=== PATIENT | male | born 1930 | race Caucasian/White ===

== ENCOUNTER 2017-02-21 15:19 | Observation (INO) | payer OTHER ==
[~2017-02-21] VITALS: Ht 177.8 cm; Wt 68.0 kg
[~2017-02-21 15:19] MED LIST: ADVIL200 M2 PO; AMLODIPINE BESY10 M1 PO; BICALUTAMIDE50 M1 PO; DEXAMETHAS0.5 MG/52; DEXAMETHASONE1 M1 PO; DEXAMETHASONE4 M1 PO; DILAUDID2 M1 PO; ELIQUIS5 M1 PO; ELIQUIS5 M2 PO; FLOMAX0.4 M1 PO; IBUPROFEN600 M1 PO; LASIX20 M1 PO; MEGESTROL ACETA40 MG PO; TRAMADOL HCL50 M1 PO; XANAX0.5 M1 PO; ZANTAC150 M1 PO
[2017-02-21 16:09] LABS: ABSOLUTE BASOPHIL COUNT 0 /CUMM (0.0-0.2); ABSOLUTE EOSINOPHIL COUNT 0.1 /CUMM (0.0-0.7); ABSOLUTE GRANULOCYTE CT 14.5 /CUMM (1.4-6.5); ABSOLUTE LYMPH COUNT 1.2 /CUMM (1.2-3.4); ABSOLUTE MONOCYTE COUNT 0.9 /CUMM (0.10-0.60); BASOPHIL % 0.2 % (0.0-2.0); EOSINOPHIL % 0.3 % (0-5); HEMATOCRIT 40.7 % (42-52); MEAN CORPUSCULAR HGB 30.5 PG (27.0-31.0); MEAN CORPUSCULAR HGB CONC 34.2 G/DL (33.0-37.0); MEAN CORPUSCULAR VOLUME 89.1 FL (80.0-94.0); MEAN PLATELET VOLUME 7.9 FL (7.4-10.4); PLATELET COUNT 259 /CUMM (130-400); RED BLOOD CELL CT 4.57 /CUMM (4.70-6.10)
--- NOTE | 2017-02-21 16:10 | ED GENERAL ADULT ---
See Addendum History of Present Illness General Chief Complaint: General Adult Stated Complaint: SENT BY DR. AVENDANO FOR WEAKNESS,DIFF BREATHING Source: patient, family, old records Exam Limitations: no limitations Vital Signs & Intake/Output Vital Signs & Intake/Output Vital Signs Date Time Temp Pulse Resp B/P B/P Pulse O2 O2 Flow FiO2 Mean Ox Delivery Rate 02/23 0630 98.3 86 20 132/80 96 02/22 2259 98.4 96 20 112/60 95 Room Air 02/22 2200 98.8 93 18 116/62 95 Room Air 02/22 2053 93 116/62 02/22 1506 98.6 95 20 110/58 97 Room Air 02/22 1024 98 108/52 ED Intake and Output 02/23 0000 02/22 1200 Intake Total 1778 660 Output Total 1000 Balance 778 660 Intake, IV 1298 660 Intake, Oral 480 Output, Urine 1000 Patient 150 lb Weight Allergies Coded Allergies: NO KNOWN ALLERGIES (07/16/10) Triage Note: PT SENT TO ED BY DR. LEYVA FOR WORSENING PROSTATE CANCER. CANCER IS METASTATIC PER SON, IT'S NOW IN THE BONES. RECENTLY DISCHARGED FROM THIS HOSPITAL 1 WEEK AGO. PT HAS BEEN WEAK, DIZZY, CAN'T STAY HOME ALONE. SENT FOR ADMISSION. Triage Nurses Notes Reviewed? 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 According to patient patient is living alone. Having a more difficult time taking care of himself at home. Recently discharged from the hospital one week ago with home services. No fevers or chills. No chest pain or palpitations. Denies any lower extremity swelling. Denies abdominal pain. Patient does report that they have the Cabral catheter removed this morning and he has not urinated since. Family does report that he has not been eating or drinking much over the past several days. Patient reports no appetite. Sick contacts or recent travel. No diarrhea. (Liset SANDHU,Amber) Reconcile Medications Apixaban (Eliquis) 5 MG TABLET 1 TAB PO BID lung clot (Reported) Bicalutamide 50 MG TABLET 1 TAB PO DAILY PROSTATE (Reported) Megestrol Acetate 40 MG TABLET 1 TAB PO DAILY APPETITE . Tamsulosin HCl (Flomax) 0.4 MG CAP.ER.24H 0.4 MG PO BID prostate (Angelica MERCHANT,Cortes Blunt) Past History Travel History Traveled to [place] past 21 day No Medical History Any Pertinent Medical History? 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 No (Amber Robbins) Review of Systems Review of Systems Constitutional: Reports: malaise, weakness. Comments Review of systems: See HPI, All other systems negative. Constitutional, no chills fever or weight loss HEENT: No visual changes no sore throat no congestion Cardiovascular: No chest pain ,palpitation , orthopnea or ankle swelling Skin, no jaundice no rashes Respiratory: No cough sputum or hemoptysis GI: No nausea no vomiting : No dysuria No hematuria Muscle skeletal: no back pain, no neck pain, Neurologic: No numbness no confusion Psych: No stress anxiety or depression,. Heme/endocrine: No bruising no bleeding no polyuria or polydipsia Immunology: No splenectomy or history of AIDS (Amber Robbins) Physical Exam Physical Exam General Appearance: well developed/nourished, no apparent distress, alert, awake Comments: THIN person in no acute distress HEENT:Pupils equally round and reactive to light and accommodation. Nose is atraumatic. External auditory canal and Tympanic membranes clear. Pharynx normal. No swelling or edema. Very dry oral mucosa. Neck: Supple, no lymphadenopathy noted in the anterior cervical and supraclavicular regions, normal range of motion without pain or tenderness Back: No CVA tenderness laterally.. Cardiovascular: TACHY rate and rhythms no murmurs rubs or gallops, normal JVP Respiratory: Chest nontender. No respiratory distress.breath sounds DIMINISHED to auscultation bilaterally Abdomen: Soft, nontender nondistended, no appreciable organomegaly. Normal bowel sounds. Extremity: No edema, no calf tenderness to palpation, normal and equal pulses. Muscular strength is 4-5 in upper and lower extremities well-seated on the stretcher. 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 Neuro: Alert oriented x3, motor sensory normal, cranial nerves II through XII grossly intact. Skin: No appreciable rash on exposed skin, skin is warm an VERY DRY. POS TENTING. Psych: Mood and affect is normal, memory and judgment is normal. Core Measures ACS in differential dx? No CVA/TIA Diagnosis: No Sepsis Present: No Sepsis Focused Exam Completed? No (Liset SANDHU,Amber) Progress Differential Diagnoses I considered the following diagnoses in my evaluation of the patient: Urinary tract infection, electrolyte abnormality, acute kidney injury, dehydration, pneumonia, bronchitis, failure to thrive Plan of Care: Orders Procedure Date/time Status Change service to 02/24 828 Active MAGNESIUM 02/23 0810 Active CALCIUM 02/23 0810 Active PT Evaluate & Treat 02/23 0600 Active CBC WITHOUT DIFFERENTIAL 02/23 0600 Active BASIC ELECTROLYTES PLUS BUN&CR 02/23 0600 Active Lab Add-on Test 02/23 UNK Active ALBUMIN 02/22 1640 Complete Cabral, Insertion/Removal/Asses 02/22 1514 Active CBC WITHOUT DIFFERENTIAL 02/22 1417 Complete BASIC ELECTROLYTES PLUS BUN&CR 02/22 1417 Complete Theraputic Activities 15 Min 02/22 UNK Complete MOBILITY GOAL STATUS 02/22 UNK Complete MOBILITY CURRENT STATUS 02/22 UNK Complete Gait Training, 15 Min 02/22 UNK Complete PT EVAL LOW COMPLEX 20 MIN 02/22 UNK Complete Lab Add-on Test 02/22 UNK Active Current Medications Sig/Nicolette Start time Last Medication Dose Stop Time Status Admin Ceftriaxone Sodium 1,000 MG 1900 02/22 1900 AC 02/22 (Rocephin) 1850 Heparin Sodium 5,000 UNIT Q8 02/22 1400 CAN (Porcine) Non-Formulary 0 SEE ADMIN CRITERIA 02/22 1045 CAN Medication (NON FORMULARY) Prednisone 5 MG BID 02/22 1025 AC 02/22 2049 Bicalutamide 50 MG DAILY 02/22 1000 AC (Casodex 50MG) Megestrol Acetate 40 MG DAILY 02/22 1000 AC 02/22 (Megace 40 MG Tab) 1024 Acetaminophen 650 MG Q8P PRN 02/21 2330 AC (Tylenol) Morphine Sulfate 2 MG Q8P PRN 02/21 2330 AC (Morphine) Tramadol HCl 50 MG Q8P PRN 02/21 2330 AC (Ultram) Apixaban 5 MG BID 02/21 2200 AC 02/22 (Eliquis) 2048 Tamsulosin HCl 0.4 MG BID 02/21 2200 AC 02/22 (Flomax) 2052 Laboratory Tests 02/23/17 0810: Sodium Pending, Potassium Pending, Chloride Pending, Carbon Dioxide Pending, Anion Gap Pending, BUN Pending, Creatinine Pending, BUN/Creatinine Ratio Pending , Calcium Pending, Magnesium Pending, CBC w Diff Pending, WBC Pending, RBC Pending, Hgb Pending, Hct Pending, MCV Pending, MCH Pending, RDW Pending, Plt Count Pending, MPV Pending, PUBS MCHC Pending 02/22/17 1640: Calcium 11.4 H, Magnesium 1.8 02/22/17 1640: Anion Gap 9, Estimated GFR > 60, BUN/Creatinine Ratio 12.2, Albumin 2.8 L, CBC w Diff NO MAN DIFF REQ, RBC 3.85 L, MCV 89.1, MCH 30.0, RDW 15.2 H, MPV 7.8, Gran % 81.8 H, Lymphocytes % 9.8 L, Monocytes % 7.1, Eosinophils % 1.1, Basophils % 0.2, Absolute Granulocytes 8.3 H, Absolute Lymphocytes 1.0 L, Absolute Monocytes 0.7 H, Absolute Eosinophils 0.1, Absolute Basophils 0, PUBS MCHC 33.7 Patient does have UTI with elevated white blood to come. No fever. Patient will be treated for UTI. Also treated with IV hydration. Patient nontoxic. Patient will need placement versus discussion of hospice. Physical therapy evaluation unit. Diagnostic Imaging: Viewed by Me: Radiology Read. Discussed w/RAD: Radiology Read. Radiology Impression: PATIENT: CRIS ZHENG PRESENT AGE: 86 PATIENT ACCOUNT NO: [id number] : [birth year] LOCATION: [facility] ORDERING PHYSICIAN: Amber SANDHU SERVICE DATE: 02/21/17 EXAM TYPE: RAD - XRY-PORTABLE CHEST XRAY EXAMINATION: XR PORTABLE CHEST CLINICAL INFORMATION: Weakness, shortness of breath. COMPARISON: Chest x-ray 12/19/2016 TECHNIQUE: Portable frontal view of the chest was obtained. 5:12 PM FINDINGS: No significant abnormality is noted involving the heart, lungs, mediastinum, bony thorax or soft tissues. IMPRESSION: No acute abnormality of the chest. DICTATED BY: Pb Lopez MD Initial ED EKG: SINUS TACHYCARDIA WITH ARTIFACT, ALL 111 BPM Prior EKG: unchanged Repeat EKG: unchanged (Amber Robbins) Departure Departure Time of Disposition: 1928 Disposition: STILL A PATIENT Condition: Stable Clinical Impression Primary Impression: Hypercalcemia Secondary Impressions: Leukocytosis Qualifiers: Leukocytosis type: unspecified Qualified Code: D72.829 - Elevated white blood cell count, unspecified Urinary tract infection Qualifiers: Urinary tract infection type: site unspecified Hematuria presence: without hematuria Qualified Code: N39.0 - Urinary tract infection, site not specified Referrals: Pb Mustafa MD (PCP/Family) Departure Forms: Customer Survey General Discharge Information Observation Note Spoke With: Carlos MERCHANT,[facility] Physician Advisor Notified: SEFERINO MERCHANT,[facility] [address] Patient In: Non-ED OBS Care Area Rationale for Observation: My rational for observation is as follows . (Amber Robbins) PA/DISHWASHER BUSSER Co-Sign Statement Statement: ED Attending supervision documentation- [X] I saw and evaluated the patient. I have also reviewed all the pertinent lab results and diagnostic results. I agree with the findings and the plan of care as documented in the PA's/DISHWASHER BUSSER's documentation. Patient presents for evaluation of worsening generalized weakness. History of metastatic prostate cancer. Physical examination reveals dry mucosa and increased heart rate. [] I have reviewed the ED Record and agree with the PA's/DISHWASHER BUSSER's documentation. [] Additions or exceptions (if any) to the PAs/DISHWASHER BUSSER's note and plan are summarized below: [] (Angelica MERCHANT,Cortes Blunt) Critical Care Note Critical Care Note Critical Care Time: non-applicable (Amber Robbins)
[2017-02-21 16:18] LABS: PT 18.1 SEC (9.4-12.5); PTT 28 SEC (25-37)
[2017-02-21 16:22] LABS: GRANULOCYTE % 86.8 % (42.2-75.2); WHITE BLOOD CELL COUNT 16.8 /CUMM (4.8-10.8)
--- NOTE | 2017-02-21 17:34 | RADIOLOGY REPORT ---
EXAMINATION: XR PORTABLE CHEST CLINICAL INFORMATION: Weakness, shortness of breath. COMPARISON: Chest x-ray 12/19/2016 TECHNIQUE: Portable frontal view of the chest was obtained. 5:12 PM FINDINGS: No significant abnormality is noted involving the heart, lungs, mediastinum, bony thorax or soft tissues. IMPRESSION: No acute abnormality of the chest.
--- NOTE | 2017-02-21 20:40 | History & Physical ---
Darby Olmos MD 02/21/172039: General Information and HPI MD Statement: I have seen and personally examined CRIS WORKMAN and documented this H&P. The patient is a 86 year old M who presented with a patient stated chief complaint of [weakness and decreased per oral intake]. Source of Information: patient, family Exam Limitations: no limitations History of Present Illness: 86-year-old gentleman with past medical history of prostate cancer stage IV, hypertension, pulmonary embolism on Eliquis came to [facility] today with complaints of decreased her oral intake, weakness, chills, dysuria [patient is on Cid since last admission in view of urinary retention, which was removed today at Dr. Rae's office. Patient voided minimally after removal of Cid at home.] shortness of breath on exertion for 6-8 weeks which has gotten worsened recently. History was obtained both from the patient and his son Jarad who felt that his father has been progressively declining since the last radiotherapy. He is more confused, unsteady gait, weakness, decreased by mouth intake since then. Patient is able to ambulate with the help of a cane. But today he felt more weak and has to use wheelchair. Patient sleeps and recliner at home. Apparently patient saw Dr. Puri today who suggested inpatient admission for further evaluation and management of his chills and weakness. He also wanted to try zytiga in Future. They also had a discussion with Dr. Rae today was suggesting TURP in future. Patient was diagnosed with prostate cancer in 2009 and has metastasis to bone, and has completed 2 courses of radiotherapy [last one in November 2016]. Patient was recently admitted in December 2016 for pulmonary embolism and treated with heparin and sent home with Eliquis. Patient family expresses wishes to decide about his further care and management. They want to discuss with the family regarding home hospice/rehabilitation/ further management of his prostate CA. His family is extensively involved in his medical care. Patient doesn't have any visiting nurse/health aide. Patient is helped by his son with his medication another routine care. Allergies/Medications Allergies: Coded Allergies: NO KNOWN ALLERGIES (07/16/10) Home Med list Apixaban (Eliquis) 5 MG TABLET 1 TAB PO BID lung clot (Reported) Bicalutamide 50 MG TABLET 1 TAB PO DAILY PROSTATE (Reported) Megestrol Acetate 40 MG TABLET 1 TAB PO DAILY APPETITE . Tamsulosin HCl (Flomax) 0.4 MG CAP.ER.24H 0.4 MG PO BID prostate Compliance With Home Meds: GOOD Past History Travel History Traveled to [place] past 21 day No Medical History Neurological: NONE EENT: NONE Cardiovascular: hypertension Respiratory: NONE Gastrointestinal: NONE Hepatic: NONE Renal: NONE Musculoskeletal: NONE Psychiatric: NONE Endocrine: NONE Blood Disorders: NONE Cancer(s): prostate cancer, with mets to pelvis [employer]GER/Reproductive: NONE History of MRSA: No History of VRE: No History of CDIFF: No Surgical History Surgical History: cholecystectomy, back surgeries X3 Past Family/Social History Family History Relations & Conditions if any Relation not specified for: *No pertinent family history Psychosocial History Where do you live? Home Who Do You Live With? self Services at Home: None Primary Language: Uzbek Smoking Status: Former Smoker ETOH Use: occasional use Illicit Drug Use: denies illicit drug use Functional Ability ADLs Independent: dressing, eating, toileting, bathing. Ambulation: cane IADLs Independent: shopping, housework, finances, food prep, telephone, transportation , medication admin. Review of Systems Review of Systems Constitutional: Reports: malaise, weakness. EENTM: Reports: no symptoms. Cardiovascular: Reports: no symptoms. Respiratory: Reports: short of breath. GI: Reports: no symptoms. Genitourinary: Reports: no symptoms. Musculoskeletal: Reports: no symptoms. Skin: Reports: no symptoms. Exam & Diagnostic Data Last 24 Hrs of Vital Signs/I&O Vital Signs Date Time Temp Pulse Resp B/P B/P Pulse O2 O2 Flow FiO2 Mean Ox Delivery Rate 02/21 2221 99.1 108 18 116/60 95 02/21 1944 99.5 113 16 140/77 97 Room Air 02/21 1726 112 24 146/75 97 Room Air 02/21 1536 97.8 119 15 135/79 98 Room Air Room Air Physical Exam General Appearance Alert, Oriented X3, Cooperative, No Acute Distress Skin No Rashes, No Breakdown HEENT Atraumatic Cardiovascular Regular Rate, Normal S1, Normal S2, tachycardia Lungs Clear to Auscultation, Normal Air Movement Abdomen Normal Bowel Sounds, Soft Vascular Normal Pulses Rectal No Fissures, No Hemorrhoids, rectal tone intact Last 24 Hrs of Labs/David: Laboratory Tests 02/21/171802: Urinalysis LIGHT H, Urine Color YEL, Urine Clarity CLDY H, Urine pH 7.0, Ur Specific [place] 1.020, Urine Protein 30 H, Urine Ketones NEG, Urine Nitrite NEG, Urine Bilirubin NEG, Urine Urobilinogen 0.2, Ur Leukocyte Esterase LARGE H , Ur Microscopic SEDIMENT EXAMINED, Urine RBC 10-15 H, Urine WBC > 75 H, Urine Bacteria MANY H, Urine Hemoglobin LARGE H, Urine Glucose NEG 02/21/17 1548: Anion Gap 13, Estimated GFR > 60, BUN/Creatinine Ratio 14.0, Glucose 112 H, Calcium 12.7 H, Magnesium 1.5 L, Total Bilirubin 1.5 H, AST 39, ALT 35, Alkaline Phosphatase 146 H, Troponin I 0.02, Total Protein 6.5, Albumin 3.8, Globulin 2.7, Albumin/Globulin Ratio 1.4, TSH &T3 &Free T4 Intrp 1.560, PTH Intact < 6.3 L, PT 18.1 H, INR 1.73 H, APTT 28, CBC w Diff NO MAN DIFF REQ, RBC 4.57 L, MCV 89.1, MCH 30.5, RDW 15.0 H, MPV 7.9, Gran % 86.8 H, Lymphocytes % 7.3 L, Monocytes % 5.4, Eosinophils % 0.3, Basophils % 0.2, Absolute Granulocytes 14.5 H, Absolute Lymphocytes 1.2, Absolute Monocytes 0.9 H, Absolute Eosinophils 0.1, Absolute Basophils 0, PUBS MCHC 34.2 Microbiology 02/21 1934 BLOOD: Blood Culture - RECD 02/21 1918 BLOOD: Blood Culture - RECD 02/21 1803 URINE ROUT: Urine Culture - RECD Diagnostic Data EKG Results Sinus rhythm, normal axis, tachycardia, heart rate 112, QTC 424. CXR Results IMPRESSION: No acute abnormality of the chest. Assessment/Plan Assessment: 86-year-old gentleman with past medical history of prostate cancer stage IV, hypertension, pulmonary embolism on Eliquis came to [facility] ER today with complaints of decreased her oral intake, weakness, chills, dysuria [patient is on Cid since last admission in view of urinary retention, which was removed today at Dr. Rae's office. Patient voided minimally after removal of Cid at home.] shortness of breath on exertion for 6-8 weeks which has gotten worsened recently. Patient admitted in [facility] for further further care and management. Admission vitals Temperature 99.5, pulse rate 113, blood pressure 140/77, respiratory rate 16. Admission labs WBC 16.8, hemoglobin 13.9, hematocrit 40.7, calcium 12.7, magnesium 1.5, total bilirubin 1.5, alkaline phosphatase 146, PTH 6.3. Urine analysis-nitrate negative, leukoesterase-large, bacteria many. Problem list 1. Failure to thrive 2. Urinary tract infection secondary to long-term Cid/bladder outlet obstruction. 3. 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 Hypertension 5. Prostate CA 6. History of Pulmonary embolism on Eliquis Assessment and plan 1. Failure to thrive/hypercalcemia Patient's decreased by mouth intake, weakness and more lethargic, malaise can be secondary to his prostate cancer/depression. Patient looks dehydrated. He says he doesn't have any appetite. We will encourage by mouth intake and continue giving him megestrol. We will give him IV fluids to help with his hypercalcemia. His hypercalcemia secondary due to his malignancy/ dehydration.his PTH is low less than 6.3. We will do vitamin D levels, B12, TSH , free T4, phosphate. We will repeat BEP in a.m. 2. Urinary tract infection Patient has an indwelling Cid catheter since December 2016, which was removed today and then reinserted in [facility] in view of urinary retention. Patient has a cloudy urine in Cid, given the patient complains of chills ? Dysuria we will treat him with ceftriaxone. We will send urine culture. Patient has a recent CAT scan showing a new soft tissue mass in the anterior wall of the rectum could be an extension of his prostate cancer or new mass in the bladder which cause sitting his urinary retention. We will get the urology consult in a.m. if needed. 3. Hypertension His amlodipine was recently stopped in view of low blood pressure. We will continue monitoring his vitals. 4. Prostate cancer We will get Dr. iglesias consult in a.m. to help us guide further management of his prostate. Off note Dr. iglesias had a discussion with the family regarding starting him on zytega . We will continue his Bicalutimide. 5. History of pulmonary embolism on Eliquis We will continue his Eliquis. We will do PT/INR. Code-DNR/DNI Diet-regular diet As Ranked By This Provider Problem List: 1. Failure to thrive 2. Hypercalcemia 3. Prostate cancer metastatic to bone 4. Pulmonary emboli 5. Urinary tract infection Qualifiers Urinary tract infection type: site unspecified Hematuria presence: without hematuria Qualified Code: N39.0 - Urinary tract infection, site not specified Core Measures/Misc (11/12) Acute Coronary Syndrome ACS Diagnosis: No Congestive Heart Failure Congestive Heart Failure Diagnosis No Cerebrovascular Accident CVA/TIA Diagnosis: No VTE (View Protocol) VTE Risk Factors Age>40 No Mechanical VTE Prophylaxis d/t Other No VTE Pharm Prophylaxis d/t Other Sepsis (View protocol) Sepsis Present: No Observation Initial Note - I have personally examined CRIS WORKMAN on 02/22/17 at 0533. The disposition of CRIS WORKMAN is uncertain at this time and before a determination can be made, he requires a period of observation for the following reasons [failure to thrive] Alexandr Santoyo 02/21/17 2333: Resident Review Statement Resident Statement: examined this patient, discussed with marketing summer intern, agreed with marketing summer intern, discussed with family, reviewed EMR data (avail) Other Findings: Mr. Workman is a an 86-year-old gentleman who was known to be in his usual state of health until a couple of weeks ago. He was brought in by his family, as they were concerned about his decreased by mouth intake and inability to take care of himself. PMHx of hypertension, Prostate Ca s/p external beam radiotherapy in 2009, with mets to the bone in 2017 S/P XRT due to thoracic cord compression at T4 region and currently on Bicalutamide, and ? Eligard. He had a dominant metastatic lesion involving the entire T4 vertebral body and left T4 posterior elements associated with enhancing epidural mass tissue tumor resulting in compression of thoracic cord at T4, recent diagnosis of DVT/PE currently on apixaban, recent CT e/o bladder outlet obstruction for which he was dc'ed on cid catheter. As per the patient's family, he was feeling excessively weak and orthostatically dizzy, and had decreased by mouth intake in the last few weeks.. Also reported shaking chills, in the last few days, but no reported fever.. Cid catheter was removed by his urologist, Dr. Rae in the a.m. and there was a contemplation offered TURP for relieving bladder outlet obstruction. There was also a discussion about starting zytiga. He was also evaluated, by Dr. Puri, who advised the patient's family to be evaluated at [facility] for further management of his decreased by mouth intake.Mr. Workman, did not have any new body aches or had any neurological deficits. No headache, but was occasionally orthostatically dizzy, and was found to be stumbling while he was walking. Did not have any falls, loss of consciousness, syncope. No chest pain, palpitations. However reported exertional shortness of breath, which worsened in the last few weeks. No confusion, altered mental status, constipation. No melena, bleeding per rectum. After Cid catheter was removed, he did not have adequate urine output, and subsequently a Cid catheter was placed in the emergency room. At the time of [id number] 97.8, pulse rate 119, respiration 15 , blood pressure 135/79, pulse ox 98% on room air. On examination- General Exam : AAOx3, No acute distress, Skin: No rashes, no breakdown, generalized desquamative changes to skin ; Neck: Supple, No JVD ; CVS: Reg Rate, Normal S1,S2, No MGR ; Resp: Normal air entry, no ronchi/rales ; Abdomen: Soft, No tenderness, Normal Bowel Sounds ; Neuro: Normal Speech, Strength 5/5 b/l x 4 extremities, Sensation intact, CN III-XII NL, Reflexes 2+ ; Extremities: No cyanosis, pedal edema, normal rectal tone on brian. No bony tenderness. Pertinent Findings: WBC 16.8 (leukocytosis), hemoglobin 13.9, platelets 259 Sodium 133, potassium 3.6, magnesium 1.5 Renal function-BUN 14, creatinine 0.1. Calcium 12.7 (documented hypercalcemia, likely secondary to ? malignancy) Liver chemistries-AST 39, ALT 35, alkaline phosphatase 146 (slightly elevated,? Bone related) Chest x-ray-no acute findings. Urinalysis revealed pyuria, ULE ++, nitrites- negative. ( ? non GNRs ). EKG-normal sinus rhythm, with many artifacts, tachycardia, SC 126, QTC 424, normal axis. CAT scan abdomen-02/12 2017-The prostate and seminal vesicles are stable in appearance. There appears to be a new soft tissue mass involving the anterior wall of the rectum (series 5 image 80/90). This could represent extension of prostate cancer , a colon cancer or posttreatment change. Direct visualization is advised. Etiology in his case is likely from his worsening prostate cancer, and adverse effect from medications and recent chemotherapy. Since he is rapidly declining, he would need either palliative therapy or more closer care. He does not have any symptoms of cord compression, or any neurological deficits, and hence further imaging was not done in his case. Further discussion about care, especially in a intermediate needs to be addressed. In regards to his symptoms suggestive of urinary tract infection, abnormal UA and chills, it would be okay to treat him with ceftriaxone pending culture results. Other lab abnormalities need to be addressed-such as hypercalcemia which is relatively new in his case- with aggressive intravenous fluids. Defer the decision to the primary team to consider using a bisphosphonate, or denosumab in the future. Plan: 1- poor by mouth intake, increased lethargy- likely from his worsening carcinoma , and other electrolyte abnormalities. Nutritional consult to be obtained. Discussion with case management, as per physical therapy evaluation to place the patient at the intermediate for further management. The patient's family would like to be closely involved in making these decisions. 2- hypercalcemia-likely malignancy mediated. Calcium 11.4 (02/12/2017)-->12.7 ( 02/21/2017). PTH was very low, which was unmeasurable, which is expected as a feedback mechanism. Total vitamin D 29.1 (12/2016). Aggressive intravenous fluid administration. Recheck calcium in the morning. Consider bisphosphonates, if calcium continues to trend up. Consider endocrinology consult in the a.m., if deemed appropriate. No further imaging is warranted at this time. 3-prostate cancer-leading to bladder outlet obstruction. Cid catheter was placed in the emergency room, that is draining cloudy urine at this time. PSA continues to stay elevated. Defer the decision to the oncologist to decide further treatment. At this time continue androgen receptor inhibitor- bicalutamide. Dr. Puri needs to be notified. Please confirm from the oncologist's office, if the pt is also on lupron. Conitinue Tamsulosin at this time, since re-starting after discontinuing will have side effects. 4- abnormal UA- likely has UTI, but dont have a very strong suspicion for UTI. Would be okay to continue ceftriaxone, in his case pending culture results, since had recent instrumentation. Check lactate. 4-history of PE- would continue apixaban at this time. 5. Other lab abnormalities- Elevated Alkphos- likely bone related, however has slightly elevated t bili which could be due to stress. If there is a persistent elevation in liver enzymes, please consider obtaining GGT or ANGEL. Hypomagnesemia - likely nutrition related. Housekeeping- 1. DVT PPx- eliquis 2. Pain pathway. 3. Regular diet 4. Code- DNR/DNI Medication reconciliation: 1 amlodipine was recently discontinued. 2 bicalutamide- continued 3 Megace- continue 4.Tamsulosin- continue (please discuss w/ the urologist, if Tamsulosin is needed to be discontinued). Carlos MERCHANT, [facility] 02/21/17 2714: Attending MD Review Statement Attending Statement Attending MD Statement: examined this patient, discuss w/resident/PA/MEMBER OF PARLIAMENT, agreed w/resident/PA/MEMBER OF PARLIAMENT, discussed with family, reviewed images, amended to note Attending Assessment/Plan: 86 yo M with h/o HTN, colon polyps, prostate cancer s/p external beam radiation (2009), with pelvic and thoracic bone mets s/p XRT due to cord compression at T4 , bilateral PE/ LLE DVT on Eliquis, recently was at [facility] (Feb 12) for hypercalcemia, poor PO intake/ failure to thrive and urinary retention, discharged home with physical therapy, is sent in from Dr. Iglesias's office for evaluation of progressive weakness, malaise, poor PO intake and inability to care for self at home. Son at bedside provides details. Patient lives alone, son lives next door and watches him. C/o feeling lightheaded and wobbly on his feet, chills but no fever. No headache, fall, LOC, vision changes, fecal incontinence or back pain. He does have exertional dyspnea which seems to be worsening. His Cid catheter was discontinued at Dr. Rae's office this AM, void trial given with patient not able to uinate enough. Dr. Rae had also suggested TURP for next week. Son states that Dr. Iglesias has offered chemo with Zytiga as the next option vs consideration for hospice given declining functional status. Last radiation treatment was in Nov 2016. Vitals: Tmax 99.5, tachycardic to 100-110's, BP 140/77, sats 97% RA. Exam: elderly cachectic male, very dry skin and mucous membranes, Neck supple, Chest clear, Heart S1S2 regular, Abd soft, not distended and not tender, LE: trace edema. Back: No spinal or paraspinal tenderness. Rectal exam done by resident: normal rectal tone. Labs: WBC 16.8, INR 1.73, Na 133, calcium 12.7, Mag 1.5, T. Bili 1.5, alk phos 146, trop neg, TSH normal, B12/ folic acid normal, PTH is low. Lactic acid normal. PSA (Nov 2016) - 12.10. UA cloudy, proteinuria, WBC > 75, RBC 10-15, many bacteria, large leukocyte esterase. CXR: neg. Initial EKG: reads as Afib with appears sinus with lots of artifact baseline appears as Aflutter but difficult to interpret. Repeat EKG shows sinus tachycardia with PVC's Qtc 424. CTA CAP (Jan 2017): interval resolution of multiple pulmonary emboli, new ill- defined pulmonary nodules in right upper lobe, new 12 mm AP window lymph node, 1.5 cm right renal mass suspicious for renal cell carcinoma, bladder markedly distended with bladder outlet obstruction. New soft tissue mass involving anterior wall of rectum possible extension of prostate cancer, a colon cancer or posttreatment change. Echo (2017): EF > 60%. In the ER, cid was reinserted with ~ 600 cc output. Assessment and plan: 1. Progressive functional decline with gait instability 2. Poor appetite, failure to thrive 3. Metastatic prostate cancer, with extension into rectum, new lung and renal nodules 4. Hypercalemia with low PTH 2/2 prostate cancer, hypomagnesemia 5. UTI in the setting of recent Cid catheter placement 6. Urinary retention from bladder outlet obstruction - 23 hour observation on general medicine - Fall precautions - Nutritional consult, regular diet - Continue megestrol. - No remeron as patient develops a reaction per family. - Aggressive IV hydration, recheck calcium levels in AM - If persistently elevated calcium, would consider Pamidronate and Endo consult - Panculture, continue IV ceftriaxone pending cultures. - Replete magnesium. - Repeat EKG in AM. - Outpatient follow up with Dr. Rae - Oncology consult - PT consult - Palliative therapy, case management consult - Continue bicalutamide, flomax and eliquis. DVT ppx eliquis. DNR/I. Patient has previously refused to be placed at [facility]. Plan is to obtain PT eval in AM, assess needs for possible rehab placement. Family wishes to try and convince patient for rehab as he is lives alone. Son is well aware of the prognosis and would like to keep father comfortable if he continues to decline. He does mention to me about Dr. Iglesias's suggestion about 'Zytiga' but is aware that patient may not tolerate it. He is agreeable to discuss home hospice if Dr. Iglesias suggests no further cancer treatment. Observation Initial Note - I have personally examined TISHAFILIBERTOSeleneCRIS on 02/21/17 at 2344. The disposition of MARCECRIS is uncertain at this time and before a determination can be made, he requires a period of observation for the following reasons [Weakness, progressive decline in functioning, requires PT and possible STR]
[2017-02-21 22:21] VITALS: BP 116/60
[2017-02-22 06:36] VITALS: BP 108/52
--- NOTE | 2017-02-22 07:25 | Cons- Oncology ---
General Information and HPI Consulting Request Date of Consult: 02/22/17 Requested By: Carlos MERCHANT,Yolanda History of Present Illness: 86-year-old man well known to me with advanced prostate cancer currently being treated with Lupron and Casodex now admitted with marked fatigue and anorexia. Patient was recently diagnosed with pulmonary emboli, treated with Eliquis. Patient also was at [facility] with similar complaints and found to be hypercalcemic. Currently the patient feels somewhat improved. Patient denies fever or rigors. Allergies/Medications Allergies: Coded Allergies: NO KNOWN ALLERGIES (07/16/10) Home Med List: Apixaban (Eliquis) 5 MG TABLET 1 TAB PO BID lung clot (Reported) Bicalutamide 50 MG TABLET 1 TAB PO DAILY PROSTATE (Reported) Megestrol Acetate 40 MG TABLET 1 TAB PO DAILY APPETITE . Tamsulosin HCl (Flomax) 0.4 MG CAP.ER.24H 0.4 MG PO BID prostate Current Medications: Current Medications Sig/Nicolette Start time Last Medication Dose Route Stop Time Status Admin Acetaminophen 650 MG Q8P PRN 02/21 2330 AC PO Apixaban 5 MG BID 02/21 2200 AC 02/22 PO 0008 Bicalutamide 50 MG DAILY 02/22 1000 AC PO Ceftriaxone Sodium 1,000 MG 1900 02/22 1900 AC IV Ceftriaxone Sodium 0 .STK-MED ONE 02/21 1924 DC .ROUTE Ceftriaxone Sodium 1,000 MG ONCE ONE 02/21 1900 DC 02/21 IV 02/21 1901 1943 Magnesium Sulfate 1 GM ONCE ONE 02/21 2245 DC 02/22 Dextrose/Water 100 ML IV 02/22 0244 0011 Megestrol Acetate 40 MG DAILY 02/22 1000 AC PO Morphine Sulfate 2 MG Q8P PRN 02/21 2330 AC IV Sodium Chloride 1,000 ML ONCE ONE 02/21 2145 CAN IV 02/22 0424 Sodium Chloride 1,000 ML ONCE ONE 02/21 2030 DC 02/21 IV 02/22 0309 2245 Sodium Chloride 1,000 ML ONCE ONE 02/21 1630 DC 02/21 IV 02/22 0029 1627 Tamsulosin HCl 0.4 MG BID 02/21 2200 AC 02/22 PO 0008 Tramadol HCl 50 MG Q8P PRN 02/21 2330 AC PO Review of Systems Review of Systems: Patient denies headaches or dizziness. Patient denies new shortness of breath cough chest pain or hemoptysis. Patient denies nausea vomiting or abdominal pain. Patient denies dysuria. Patient had a Cabral catheter removed yesterday it Dr. Rae. 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 Home Who Do You Live With? self Services at Home: None Primary Language: Bulgarian Smoking Status: Former Smoker ETOH Use: occasional use Illicit Drug Use: denies illicit drug use Functional Ability ADLs Independent: dressing, eating, toileting, bathing. Ambulation: cane IADLs Independent: shopping, housework, finances, food prep, telephone, transportation , medication admin. Exam & Diagnostic Data Vital Signs and I&O Vital Signs Date Time Temp Pulse Resp B/P B/P Pulse O2 O2 Flow FiO2 Mean Ox Delivery Rate 02/22 0636 98.3 98 20 108/52 96 02/21 2221 99.1 108 18 116/60 95 02/21 1944 99.5 113 16 140/77 97 Room Air 02/21 1726 112 24 146/75 97 Room Air 02/21 1536 97.8 119 15 135/79 98 Room Air Room Air Intake & Output 02/22 0800 02/22 0000 02/21 1600 Intake Total Output Total 600 Balance -600 Output, Urine 600 Patient 150 lb Weight Gen.: in NAD ENT: Sclera anicteric Chest: Normal respiratory effort, decreased breath sounds Cor: RRR, no extra sounds Abdomen: Soft, bowel sounds present, no tenderness, no rebound Extremities: Without clubbing, cyanosis, or asymmetric edema Neurology: Alert and oriented 3, no gross deficit Skin: No rashes Last 48 Hours of Lab Results: Laboratory Tests 02/22 02/21 02/21 0144 2330 1803 Chemistry Lactic Acid (0.7 - 2.1 mmol/L) Cancelled 0.9 Urines Urinalysis LIGHT H Urine Color (YEL,AMB,STR) YEL Urine Clarity (CLEAR) CLDY H Urine pH (5.0 - 8.0) 7.0 Ur Specific [place] (1.001 - 1.035) 1.020 Urine Protein (NEG,<30 MG/DL) 30 H Urine Ketones (NEG) NEG Urine Nitrite (NEG) NEG Urine Bilirubin (NEG) NEG Urine Urobilinogen (0.1 - 1.0 EU/dl) 0.2 Ur Leukocyte Esterase (NEG) LARGE H Ur Microscopic SEDIMENT EXAMINED Urine RBC (0 - 5 /HPF) 10-15 H Urine WBC (0 - 2 /HPF) > 75 H Urine Bacteria (NEG/NONE) MANY H Urine Hemoglobin (NEG) LARGE H Urine Glucose (N MG/DL) NEG 02/21 1548 Chemistry Sodium (137 - 145 mmol/L) 133 L Potassium (3.5 - 5.1 mmol/L) 3.6 Chloride (98 - 107 mmol/L) 96 L Carbon Dioxide (22 - 30 mmol/L) 24 Anion Gap (5 - 16) 13 BUN (9 - 20 mg/dL) 14 Creatinine (0.7 - 1.2 mg/dL) 1.0 Estimated GFR (>60 ml/min) > 60 BUN/Creatinine Ratio (7 - 25 %) 14.0 Glucose (65 - 99 mg/dL) 112 H Calcium (8.4 - 10.2 mg/dL) 12.7 H Phosphorus (2.5 - 4.5 mg/dL) 3.0 Magnesium (1.6 - 2.3 mg/dL) 1.5 L Total Bilirubin (0.2 - 1.3 mg/dL) 1.5 H AST (17 - 59 U/L) 39 ALT (21 - 72 U/L) 35 Alkaline Phosphatase (< 127 U/L) 146 H Troponin I (<0.11 ng/ml) 0.02 Total Protein (6.3 - 8.2 g/dL) 6.5 Albumin (3.5 - 5.0 g/dL) 3.8 Globulin (1.9 - 4.2 gm/dL) 2.7 Albumin/Globulin Ratio (1.1 - 2.2 %) 1.4 Vitamin B12 (239 - 931 pg/mL) 903 Folate (2.76 - 20.0 ng/mL) 12.5 TSH &T3 &Free T4 Intrp (0.27 - 4.20 uIU/mL) 1.560 PTH Intact (13.8 - 85 pg/ml) < 6.3 L Coagulation PT (9.4 - 12.5 SEC) 18.1 H INR (0.90 - 1.17) 1.73 H APTT (25 - 37 SEC) 28 Hematology CBC w Diff NO MAN DIFF REQ WBC (4.8 - 10.8 /CUMM) 16.8 H RBC (4.70 - 6.10 /CUMM) 4.57 L Hgb (14.0 - 18.0 G/DL) 13.9 L Hct (42 - 52 %) 40.7 L MCV (80.0 - 94.0 FL) 89.1 MCH (27.0 - 31.0 PG) 30.5 RDW (11.5 - 14.5 %) 15.0 H Plt Count (130 - 400 /CUMM) 259 MPV (7.4 - 10.4 FL) 7.9 Gran % (42.2 - 75.2 %) 86.8 H Lymphocytes % (20.5 - 51.1 %) 7.3 L Monocytes % (1.7 - 9.3 %) 5.4 Eosinophils % (0 - 5 %) 0.3 Basophils % (0.0 - 2.0 %) 0.2 Absolute Granulocytes (1.4 - 6.5 /CUMM) 14.5 H Absolute Lymphocytes (1.2 - 3.4 /CUMM) 1.2 Absolute Monocytes (0.10 - 0.60 /CUMM) 0.9 H Absolute Eosinophils (0.0 - 0.7 /CUMM) 0.1 Absolute Basophils (0.0 - 0.2 /CUMM) 0 PUBS MCHC (33.0 - 37.0 G/DL) 34.2 Imaging/Other Studies: Chest x-ray no active disease Assessment/Plan Assessment: 1. Stage IV prostate cancer-recent PSA has increased and his overall status suggests disease progression. Recommend- Begin Zytiga 1000mg/day,Prednisone 5 mg twice a day Discontinue Casodex 2. 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 Leukocytosis-patient has no infectious complaints, cultures have been obtained, the patient is now on IV antibiotics 4. Urinary retention-hopefully can avoid a surgical procedure (TURP) The patient and family are all aware of these recommendations Recommendations: .. Consult Acknowledgment - Thank you for your consult request.
--- NOTE | 2017-02-22 10:35 | PN- Housestaff ---
Nya Vigil 02/22/17 1033: Subjective Follow-up For: high ca prostate cancer with mets ftt Subjective: I have seen and examined the patient. does no have any cc. will try having food today. Review of Systems Constitutional: Reports: see HPI. Objective Last 24 Hrs of Vital Signs/I&O Vital Signs Date Time Temp Pulse Resp B/P B/P Pulse O2 O2 Flow FiO2 Mean Ox Delivery Rate 02/22 1024 98 108/52 02/22 0636 98.3 98 20 108/52 96 02/21 2221 99.1 108 18 116/60 95 02/21 1944 99.5 113 16 140/77 97 Room Air 02/21 1726 112 24 146/75 97 Room Air 02/21 1536 97.8 119 15 135/79 98 Room Air Room Air Intake & Output 02/22 1600 02/22 0800 02/22 0000 Intake Total 660 Output Total 600 Balance 660 -600 Intake, IV 660 Output, Urine 600 Patient 68.039 kg Weight Physical Exam General Appearance: Alert, Oriented X3, Cooperative Other Physical Findings: Skin No Rashes, No Breakdown HEENT Atraumatic Cardiovascular Regular Rate, Normal S1, Normal S2, tachycardia Lungs Clear to Auscultation, Normal Air Movement Abdomen Normal Bowel Sounds, Soft Vascular Normal Pulses Current Medications: Current Medications Sig/Nicolette Start time Last Medication Dose Route Stop Time Status Admin Acetaminophen 650 MG Q8P PRN 02/21 2330 AC PO Apixaban 5 MG BID 02/21 2200 AC 02/22 PO 1024 Bicalutamide 50 MG DAILY 02/22 1000 AC PO Ceftriaxone Sodium 1,000 MG 1900 02/22 1900 AC IV Ceftriaxone Sodium 0 .STK-MED ONE 02/22 1924 DC .ROUTE Ceftriaxone Sodium 1,000 MG ONCE ONE 02/21 1900 DC 02/21 IV 02/21 190 1943 Heparin Sodium 5,000 UNIT Q8 02/22 1400 CAN (Porcine) SC Magnesium Sulfate 1 GM ONCE ONE 02/21 2245 DC 02/22 Dextrose/Water 100 ML IV 02/22 0244 0011 Megestrol Acetate 40 MG DAILY 02/22 1000 AC 02/22 PO 1024 Morphine Sulfate 2 MG Q8P PRN 02/21 2330 AC IV Non-Formulary 0 SEE ADMIN CRITERIA 02/22 1045 UNVr Medication ANY Prednisone 5 MG BID 02/22 1025 UNVr PO Sodium Chloride 1,000 ML ONCE ONE 02/21 2145 CAN IV 02/22 0424 Sodium Chloride 1,000 ML ONCE ONE 02/21 2030 DC 02/21 IV 02/22 0309 2245 Sodium Chloride 1,000 ML ONCE ONE 02/21 1630 DC 02/21 IV 02/22 0029 1627 Tamsulosin HCl 0.4 MG BID 02/21 2200 AC 02/22 PO 1024 Tramadol HCl 50 MG Q8P PRN 02/21 2330 AC PO Assessment/Plan Assessment: 86 yo M with h/o HTN, colon polyps, prostate cancer s/p external beam radiation (2009), with 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 Kinney's office for evaluation of progressive weakness, malaise, poor PO intake and inability to care for self at home. Son at bedside provides details. Patient lives alone, son lives next door and watches him. C/o feeling lightheaded and wobbly on his feet, chills but no fever. No headache, fall, LOC, vision changes, fecal incontinence or back pain. He does have exertional dyspnea which seems to be worsening. His Cid catheter was discontinued at Dr. Rae's office this AM, void trial given with patient not able to uinate enough. Dr. Rae had also suggested TURP for next week. Son states that Dr. Kinney has offered chemo with Zytiga as the next option vs consideration for hospice given declining functional status. Last radiation treatment was in Nov 2016. Vitals: Tmax 99.5, tachycardic to 100-110's, BP 140/77, sats 97% RA. Exam: elderly cachectic male, very dry skin and mucous membranes, Neck supple, Chest clear, Heart S1S2 regular, Abd soft, not distended and not tender, LE: trace edema. Back: No spinal or paraspinal tenderness. Rectal exam done by resident: normal rectal tone. Labs: WBC 16.8, INR 1.73, Na 133, calcium 12.7, Mag 1.5, T. Bili 1.5, alk phos 146, trop neg, TSH normal, B12/ folic acid normal, PTH is low. Lactic acid normal. PSA (Nov 2016) - 12.10. UA cloudy, proteinuria, WBC > 75, RBC 10-15, many bacteria, large leukocyte esterase. CXR: neg. Initial EKG: reads as Afib with appears sinus with lots of artifact baseline appears as Aflutter but difficult to interpret. Repeat EKG shows sinus tachycardia with PVC's Qtc 424. CTA CAP (Jan 2017): interval resolution of multiple pulmonary emboli, new ill- defined pulmonary nodules in right upper lobe, new 12 mm AP window lymph node, 1.5 cm right renal mass suspicious for renal cell carcinoma, bladder markedly distended with bladder outlet obstruction. New soft tissue mass involving anterior wall of rectum possible extension of prostate cancer, a colon cancer or posttreatment change. Echo (2017): EF > 60%. In the ER, cid was reinserted with ~ 600 cc output. Assessment and plan: 1. Progressive functional decline with gait instability/ Poor appetite, failure to thrive/ Metastatic prostate cancer, with extension into rectum, new lung and renal nodules 2.Hypercalemia with low PTH 2/2 prostate cancer, hypomagnesemia 3. UTI in the setting of recent Cid catheter placement Urinary retention from bladder outlet obstruction PLAN - 23 hour observation on general medicine - Nutritional consult, regular diet/ Continue megestrol/No remeron as patient develops a reaction per family. - Aggressive IV hydration, recheck calcium levels in AM -per oncology we will change casodex to zaytiga, IV pamindronate and prednisone 5 mg BID - Outpatient follow up with Dr. Rae c/w cid catheter - PT consult - case management consult - Continue flomax and eliquis. -c/w IV ceftriaxone -DVT ppx eliquis. DNR/I. Problem List: 1. DVT (deep venous thrombosis) 2. Prostate cancer metastatic to bone Pain Ratin Pain Location: no pain Pain Goal: Remain pain free Pain Plan: same Tomorrow's Labs & Rationales: cbc bep Titus Olsen 02/22/17 1422: Attending MD Review Statement Attending Statement Attending MD Statement: examined this patient, discuss w/resident/PA/DESIGN EDITOR, agreed w/resident/PA/DESIGN EDITOR, reviewed EMR data (avail), discussed with nursing, discussed with case mgmt Attending Assessment/Plan: agree with the above assessment and plan. appreciated heme/onc consult and input. cont to monitor hypercalcemia closely
[2017-02-22 15:06] VITALS: BP 110/58
--- NOTE | 2017-02-22 16:15 | Patient Discharge Instructions ---
Discharge Instructions General Discharge Information You were seen/treated for: Elevated calcium Low appetite Urinary infection Special Instructions: -Please follow-up with your primary care provider within 7 days after discharge. -please follow-up with Dr. Rae after discharge regarding you cid cath. -please follow-up with your oncologist regarding starting Zytiga after discharge call [phone] -We have made changes to your home medications, please read the instructions carefully. -Please come back to the hospital if your symptoms got worse. Diet Recommended Diet: Regular Activity Full Activity/No Limits: Yes (as tolerated) Acute Coronary Syndrome Inclusion Criteria At DC or during hospital stay patient has or had the following: ACS DIAGNOSIS No Discharge Core Measures Meds if any: Prescribed or Continued at Discharge Meds if any: NOT Prescribed or Continued at Discharge Congestive Heart Failure Inclusion Criteria At DC or during hospital stay patient has or had the following: CHF DIAGNOSIS No Discharge Core Measures Meds if any: Prescribed or Continued at Discharge Meds if any: NOT Prescribed or Continued at Discharge Cerebrovascular accident Inclusion Criteria At DC or during hospital stay patient has or had the following: CVA/TIA Diagnosis No Discharge Core Measures Meds if any: Prescribed or Continued at Discharge Meds if any: NOT Prescribed or Continued at Discharge Venous thromboembolism Inclusion Criteria VTE Diagnosis No VTE Type NONE VTE Confirmed by (Test) NONE Discharge Core Measures - Per Current guidelines, there needs to be overlap - treatment for the first 5 days of Warfarin therapy. - If discharged on Warfarin prior to 5 days of - overlap therapy, the patient will need to be - assessed for post discharge needs including - *Post discharge parental anticoagulation - *Warfarin and/or parental anticoagulation education - *Follow up date to check INR post discharge At least 5 days overlap therapy as Inpatient No Meds if any: Prescribed or Continued at Discharge Note: Overlap Therapy is Warfarin and Anticoagulant Meds if any: NOT Prescribed or Continued at Discharge
[2017-02-22 17:20] LABS: ABSOLUTE BASOPHIL COUNT 0 /CUMM (0.0-0.2); ABSOLUTE EOSINOPHIL COUNT 0.1 /CUMM (0.0-0.7); ABSOLUTE GRANULOCYTE CT 8.3 /CUMM (1.4-6.5); ABSOLUTE MONOCYTE COUNT 0.7 /CUMM (0.10-0.60); BASOPHIL % 0.2 % (0.0-2.0); EOSINOPHIL % 1.1 % (0-5); GRANULOCYTE % 81.8 % (42.2-75.2); MEAN CORPUSCULAR HGB CONC 33.7 G/DL (33.0-37.0); MEAN CORPUSCULAR VOLUME 89.1 FL (80.0-94.0); MEAN PLATELET VOLUME 7.8 FL (7.4-10.4); PLATELET COUNT 221 /CUMM (130-400); RBC DISTRIBUTION WIDTH 15.2 % (11.5-14.5); RED BLOOD CELL CT 3.85 /CUMM (4.70-6.10); WHITE BLOOD CELL COUNT 10.2 /CUMM (4.8-10.8)
[2017-02-22 17:27] LABS: HEMATOCRIT 34.3 % (42-52)
[2017-02-22 22:00] VITALS: BP 116/62
[2017-02-22 22:59] VITALS: BP 112/60
[2017-02-23 06:30] VITALS: BP 132/80
--- NOTE | 2017-02-23 07:29 | PN- Housestaff ---
Tien Vigiltigre 02/23/17 0729: Subjective Follow-up For: Failure to thrive Hypercalcemia Subjective: I have seen and examined the patient. Patient is feeling a bit sad and doesn't want to go to rehabilitation. Calcium is decreased to 11.4. Review of Systems Constitutional: Reports: see HPI. Objective Last 24 Hrs of Vital Signs/I&O Vital Signs Date Time Temp Pulse Resp B/P B/P Pulse O2 O2 Flow FiO2 Mean Ox Delivery Rate 02/23 1429 97.2 94 18 118/66 96 Room Air 02/23 0955 86 132/80 02/23 0938 Room Air Room Air 02/23 0630 98.3 86 20 132/80 96 02/22 2259 98.4 96 20 112/60 95 Room Air 02/22 2200 98.8 93 18 116/62 95 Room Air 02/22 2053 93 116/62 02/22 1506 98.6 95 20 110/58 97 Room Air Intake & Output 02/23 1600 02/23 0800 02/23 0000 Intake Total 620 1160 1778 Output Total 600 1150 450 Balance 20 10 1328 Intake, IV 800 1298 Intake, Oral 620 360 480 Number 0 Bowel Movements Output, Urine 600 1150 450 Physical Exam General Appearance: Alert, Oriented X3, Cooperative, No Acute Distress Other Physical Findings: Skin No Rashes, No Breakdown HEENT Atraumatic Cardiovascular Regular Rate, Normal S1, Normal S2, tachycardia Lungs Clear to Auscultation, Normal Air Movement Abdomen Normal Bowel Sounds, Soft Vascular Normal Pulses Current Medications: Current Medications Sig/Nicolette Start time Last Medication Dose Route Stop Time Status Admin Acetaminophen 650 MG Q8P PRN 02/21 2330 AC PO Apixaban 5 MG BID 02/21 2200 AC 02/23 PO 0956 Bicalutamide 50 MG DAILY 02/22 1000 AC 02/23 PO 0956 Ceftriaxone Sodium 1,000 MG 1900 02/22 1900 AC 02/22 IV 1850 Escitalopram Oxalate 10 MG DAILY 02/23 1000 AC 02/23 PO 1200 Megestrol Acetate 40 MG DAILY 02/22 1000 AC 02/23 PO 0955 Morphine Sulfate 2 MG Q8P PRN 02/21 2330 AC IV Pamidronate Disodium 60 MG ONCE ONE 02/22 1200 DC 02/22 Sodium Chloride 1,000 ML IV 02/22 195 1240 Potassium Chloride 40 MEQ BID 02/22 1915 DC 02/23 PO 02/23 0501 0516 Prednisone 5 MG BID 02/22 1025 AC 02/23 PO 0955 Sodium Chloride 1,000 ML Q10H 02/22 1915 DC 02/22 IV 02/23 0514 1938 Tamsulosin HCl 0.4 MG BID 02/21 2200 AC 02/23 PO 0955 Tramadol HCl 50 MG Q8P PRN 02/21 2330 AC PO Assessment/Plan Assessment: 86 yo M with h/o HTN, colon polyps, prostate cancer s/p external beam radiation (2009), with 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 Kinney's office for evaluation of progressive weakness, malaise, poor PO intake and inability to care for self at home. Son at bedside provides details. Patient lives alone, son lives next door and watches him. C/o feeling lightheaded and wobbly on his feet, chills but no fever. No headache, fall, LOC, vision changes, fecal incontinence or back pain. He does have exertional dyspnea which seems to be worsening. His Cid catheter was discontinued at Dr. Rae's office this AM, void trial given with patient not able to uinate enough. Dr. Rae had also suggested TURP for next week. Son states that Dr. Kinney has offered chemo with Zytiga as the next option vs consideration for hospice given declining functional status. Last radiation treatment was in Nov 2016. Vitals: Tmax 99.5, tachycardic to 100-110's, BP 140/77, sats 97% RA. Exam: elderly cachectic male, very dry skin and mucous membranes, Neck supple, Chest clear, Heart S1S2 regular, Abd soft, not distended and not tender, LE: trace edema. Back: No spinal or paraspinal tenderness. Rectal exam done by resident: normal rectal tone. Labs: WBC 16.8, INR 1.73, Na 133, calcium 12.7, Mag 1.5, T. Bili 1.5, alk phos 146, trop neg, TSH normal, B12/ folic acid normal, PTH is low. Lactic acid normal. PSA (Nov 2016) - 12.10. UA cloudy, proteinuria, WBC > 75, RBC 10-15, many bacteria, large leukocyte esterase. CXR: neg. Initial EKG: reads as Afib with appears sinus with lots of artifact baseline appears as Aflutter but difficult to interpret. Repeat EKG shows sinus tachycardia with PVC's Qtc 424. CTA CAP (Jan 2017): interval resolution of multiple pulmonary emboli, new ill- defined pulmonary nodules in right upper lobe, new 12 mm AP window lymph node, 1.5 cm right renal mass suspicious for renal cell carcinoma, bladder markedly distended with bladder outlet obstruction. New soft tissue mass involving anterior wall of rectum possible extension of prostate cancer, a colon cancer or posttreatment change. Echo (2017): EF > 60%. In the ER, cid was reinserted with ~ 600 cc output. Assessment and plan: 1. Progressive functional decline with gait instability/ Poor appetite, failure to thrive/ Metastatic prostate cancer, with extension into rectum, new lung and renal nodules 2.Hypercalemia with low PTH 2/2 prostate cancer, hypomagnesemia 3. UTI in the setting of recent Cid catheter placement Urinary retention from bladder outlet obstruction PLAN - underobservation on general medicine - Nutritional consult, regular diet/ Continue megestrol/No remeron as patient develops a reaction per family. - ca is 11.4 we will recheck it in the afternoon (stastus post IV pamidronate) on 5 mg predinisone BID PO -Oncology recommended changing his Casodex to zytiga however is not available been in an inpatient setting patient should follow-up with oncology to change her his medication to Zytiga after discharge - Outpatient follow up with Dr. Rae c/w cid catheter - PT consult: home PT -discharge destination most likely rehabilitation - Continue flomax and eliquis. -c/w IV ceftriaxone -DVT ppx eliquis. DNR/I. Problem List: 1. Prostate cancer metastatic to bone Pain Ratin Pain Location: no pain Pain Goal: Pain 4 or less Pain Plan: same Tomorrow's Labs & Rationales: cbc bep Titus Chapa 02/23/17 1441: Attending MD Review Statement Attending Statement Attending MD Statement: examined this patient, discuss w/resident/PA/COATING MACHINE HELPER, agreed w/resident/PA/COATING MACHINE HELPER, reviewed EMR data (avail), discussed with nursing, discussed with case mgmt Attending Assessment/Plan: had a lengthy family conference with pts family and case management to discuss discharge plan. Family wants pt to be dced to [facility] as they feel that he does not eat at home and does not move around at home and deteriorates very fast and has been back and forth to the hospital because of that. Will check with PT about their recommendations and see what they recommend. Family is going to talk to patient about [facility] and see if he agrees.
--- NOTE | 2017-02-23 07:36 | PN- Oncology ---
Subjective Subjective: He denies any new pain. He has no fever or chills. He wants to go home. He does not want to go to a facility to sit around. He continues to have decreased appetite and fatigue. Review of Systems Constitutional: Reports: malaise, weakness. Denies: chills, fever. Cardiovascular: Denies: chest pain. Gastrointestinal: Denies: abdominal pain. Musculoskeletal: Denies: back pain. Neurological/Psychological: Denies: anxiety, confusion. All Other Systems: Reviewed and Negative Objective Vital Signs and I&Os Vital Signs Date Time Temp Pulse Resp B/P B/P Pulse O2 O2 Flow FiO2 Mean Ox Delivery Rate 02/23 0630 98.3 86 20 132/80 96 02/22 2259 98.4 96 20 112/60 95 Room Air 02/22 2200 98.8 93 18 116/62 95 Room Air 02/22 2053 93 116/62 02/22 1506 98.6 95 20 110/58 97 Room Air 02/22 1024 98 108/52 Intake & Output 02/23 0800 02/23 0000 02/22 1600 02/22 0800 02/22 0000 02/21 1600 Intake Total 1160 1778 660 Output Total 1150 450 550 600 Balance 10 1328 -550 660 -600 Intake, IV 800 1298 660 Intake, Oral 360 480 Output, Urine 1150 450 550 600 Patient 68.039 kg 68.039 kg Weight Physical Exam General Appearance: no apparent distress, alert, awake, comfortable Head: atraumatic Neck: supple Respiratory: normal breath sounds, chest non-tender, no respiratory distress, quiet respiration Cardiovascular: regular rate/rhythm Abdomen: normal bowel sounds, soft, non-tender Extremities: no edema Neurologic/Psychiatric: awake, alert, oriented x 3 Skin: warm/dry Lymphatic: no anterior cervical zachariah Current Medications: Current Medications Sig/Nicolette Start time Last Medication Dose Route Stop Time Status Admin Acetaminophen 650 MG Q8P PRN 02/21 2330 AC PO Apixaban 5 MG BID 02/21 2200 AC 02/22 PO 2049 Bicalutamide 50 MG DAILY 02/22 1000 AC PO Ceftriaxone Sodium 1,000 MG 1900 02/22 1900 AC 02/22 IV 1850 Heparin Sodium 5,000 UNIT Q8 02/22 1400 CAN (Porcine) SC Megestrol Acetate 40 MG DAILY 02/22 1000 AC 02/22 PO 1024 Morphine Sulfate 2 MG Q8P PRN 02/21 2330 AC IV Non-Formulary 0 SEE ADMIN CRITERIA 02/22 1045 CAN Medication ANY Pamidronate Disodium 60 MG ONCE ONE 02/22 1200 DC 02/22 Sodium Chloride 1,000 ML IV 02/22 1959 1240 Potassium Chloride 40 MEQ BID 02/22 1915 DC 02/23 PO 02/23 0501 0516 Prednisone 5 MG BID 02/22 1025 AC 02/22 PO 2049 Sodium Chloride 1,000 ML Q10H 02/22 1915 DC 02/22 IV 02/23 0514 1938 Tamsulosin HCl 0.4 MG BID 02/21 220 AC 02/22 PO 205 Tramadol HCl 50 MG Q8P PRN 02/21 2330 AC PO Results Last 24 Hours of Lab Results: Laboratory Tests 02/22 02/22 1640 1640 Chemistry Sodium (137 - 145 mmol/L) 136 L Potassium (3.5 - 5.1 mmol/L) 3.1 L Chloride (98 - 107 mmol/L) 102 Carbon Dioxide (22 - 30 mmol/L) 25 Anion Gap (5 - 16) 9 BUN (9 - 20 mg/dL) 11 Creatinine (0.7 - 1.2 mg/dL) 0.9 Estimated GFR (>60 ml/min) > 60 BUN/Creatinine Ratio (7 - 25 %) 12.2 Calcium (8.4 - 10.2 mg/dL) 11.4 H Magnesium (1.6 - 2.3 mg/dL) 1.8 Albumin (3.5 - 5.0 g/dL) 2.8 L Hematology CBC w Diff NO MAN DIFF REQ WBC (4.8 - 10.8 /CUMM) 10.2 RBC (4.70 - 6.10 /CUMM) 3.85 L Hgb (14.0 - 18.0 G/DL) 11.5 L Hct (42 - 52 %) 34.3 L MCV (80.0 - 94.0 FL) 89.1 MCH (27.0 - 31.0 PG) 30.0 RDW (11.5 - 14.5 %) 15.2 H Plt Count (130 - 400 /CUMM) 221 MPV (7.4 - 10.4 FL) 7.8 Gran % (42.2 - 75.2 %) 81.8 H Lymphocytes % (20.5 - 51.1 %) 9.8 L Monocytes % (1.7 - 9.3 %) 7.1 Eosinophils % (0 - 5 %) 1.1 Basophils % (0.0 - 2.0 %) 0.2 Absolute Granulocytes (1.4 - 6.5 /CUMM) 8.3 H Absolute Lymphocytes (1.2 - 3.4 /CUMM) 1.0 L Absolute Monocytes (0.10 - 0.60 /CUMM) 0.7 H Absolute Eosinophils (0.0 - 0.7 /CUMM) 0.1 Absolute Basophils (0.0 - 0.2 /CUMM) 0 PUBS MCHC (33.0 - 37.0 G/DL) 33.7 Assessment/Plan Assessment/Recommendations: Mr. Workman is a 86-year-old male with metastatic prostate cancer who presents with fatigue, anorexia, failure to thrive, and hypercalcemia. He has received IVF and pamidronate. Clinically, he has improved a little. His calcium remains elevated. He should be continued on IVF and monitor for calcium level. Due to his decondition, he should have PT evaluation. Case management is helping with discharge evaluation. Family is concern about safety at home by himself. With regard to his prostate cancer, he has progressed on Casodex. Abiraterone and prednisone were recommended to be started. Unfortunately, hospital will not be able to get this medication for him. He can be remained on Casodex for now. If he is discharged to facility, he should have abiraterone and prednisone started there. Otherwise, he will need to follow up with Dr. Kinney to start medication. Recommendation: Metastatic prostate cancer: -Continue Casodex for now -Start abiraterone 1000 mg daily/prednisone 5 mg BID as soon as possible ( discontinue Casodex at that time), start on discharge to facility Hypercalcemia: -Monitor calcium level -IVF Deconditioning/FTT: -Nutrition evaluation -PT evaluation -Case management assistance on discharge planning/home safety PE: -continue apixaban Please call [phone] with any questions or concerns. Problem List: 1. Failure to thrive 2. Hypercalcemia 3. Prostate cancer metastatic to bone 4. Pulmonary emboli 5. DVT (deep venous thrombosis)
[2017-02-23 09:23] LABS: ABSOLUTE BASOPHIL COUNT 0 /CUMM (0.0-0.2); ABSOLUTE EOSINOPHIL COUNT 0.1 /CUMM (0.0-0.7); ABSOLUTE LYMPH COUNT 1.4 /CUMM (1.2-3.4); ABSOLUTE MONOCYTE COUNT 0.8 /CUMM (0.10-0.60); BASOPHIL % 0.4 % (0.0-2.0); EOSINOPHIL % 0.8 % (0-5); GRANULOCYTE % 77.5 % (42.2-75.2); HEMATOCRIT 33.8 % (42-52); MEAN CORPUSCULAR HGB 30.6 PG (27.0-31.0); MEAN CORPUSCULAR HGB CONC 34.3 G/DL (33.0-37.0); MEAN CORPUSCULAR VOLUME 89.2 FL (80.0-94.0); MEAN PLATELET VOLUME 8.1 FL (7.4-10.4); PLATELET COUNT 229 /CUMM (130-400); RBC DISTRIBUTION WIDTH 15.2 % (11.5-14.5); RED BLOOD CELL CT 3.79 /CUMM (4.70-6.10); WHITE BLOOD CELL COUNT 10.4 /CUMM (4.8-10.8)
--- NOTE | 2017-02-23 13:44 | Discharge Summary ---
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 Kinney's office for evaluation of progressive weakness, malaise, poor PO intake and inability to care for self at home. Son at bedside provides details. Patient lives alone, son lives next door and watches him. C/o feeling lightheaded and wobbly on his feet, chills but no fever. No headache, fall, LOC, vision changes, fecal incontinence or back pain. He does have exertional dyspnea which seems to be worsening. His Cid catheter was discontinued at Dr. Rae's office void trial given with patient not able to uinate enough. Dr. Rae had also suggested TURP for next week. Son states that Dr. Kinney has offered chemo with Zytiga as the next option vs consideration for hospice given declining functional status. Last radiation treatment was in Nov 2016. Vitals: Tmax 99.5, tachycardic to 100-110's, BP 140/77, sats 97% RA. Exam: elderly cachectic male, very dry skin and mucous membranes, Neck supple, Chest clear, Heart S1S2 regular, Abd soft, not distended and not tender, LE: trace edema. Back: No spinal or paraspinal tenderness. Rectal exam done by resident: normal rectal tone. Labs: WBC 16.8, INR 1.73, Na 133, calcium 12.7, Mag 1.5, T. Bili 1.5, alk phos 146, trop neg, TSH normal, B12/ folic acid normal, PTH is low. Lactic acid normal. PSA (Nov 2016) - 12.10. UA cloudy, proteinuria, WBC > 75, RBC 10-15, many bacteria, large leukocyte esterase. CXR: neg. Initial EKG: reads as Afib with appears sinus with lots of artifact baseline appears as Aflutter but difficult to interpret. Repeat EKG shows sinus tachycardia with PVC's Qtc 424. CTA CAP (Jan 2017): interval resolution of multiple pulmonary emboli, new ill- defined pulmonary nodules in right upper lobe, new 12 mm AP window lymph node, 1.5 cm right renal mass suspicious for renal cell carcinoma, bladder markedly distended with bladder outlet obstruction. New soft tissue mass involving anterior wall of rectum possible extension of prostate cancer, a colon cancer or posttreatment change. Echo (2017): EF > 60%. In the ER, cid was reinserted with ~ 600 cc output. He was put underobservation in [facility] for these medical conditions: Assessment and plan: # Progressive functional decline with gait instability/ Poor appetite, failure to thrive Patient was treated with IV hydration and his appetite improved. Nutrition consult was also placed. Lexapro 10 mg daily by mouth was also started. patient will be discharged to rehab. #Metastatic prostate cancer, with extension into rectum, new lung and renal nodules/ Hypercalemia with low PTH 2/2 prostate cancer Patient was treated with IV hydration and IV pamidronate for lowering the calcium. Some decrease from 12.7 to 11.4 and finally before discharge 10.2.Per oncology recommendation patient Casodex should change tor Zytiga as soon as possible after discharge.please call office for pre-authorization for medication as soon as possible phone number [phone]. Prednisone 5 mg by mouth twice a day was also started. #UTI in the setting of recent Cid catheter placement/ Urinary retention from bladder outlet obstruction Patient was treated with IV ceftriaxone which eventually changed to by mouth antibiotics(agumentin ) for compele 7 days abx therapy(UC E.coli sensetive to augmentin). Patient should follow-up with Dr. Rae in outpatient setting for further management of his urinary outlet obstruction. Allergies: Coded Allergies: NO KNOWN ALLERGIES (07/16/10) Pertinent Lab Results: Laboratory Tests 02/24 02/23 0753 1700 Chemistry Sodium (137 - 145 mmol/L) 134 L Potassium (3.5 - 5.1 mmol/L) 3.7 Chloride (98 - 107 mmol/L) 101 Carbon Dioxide (22 - 30 mmol/L) 23 Anion Gap (5 - 16) 11 BUN (9 - 20 mg/dL) 8 L Creatinine (0.7 - 1.2 mg/dL) 0.8 Estimated GFR (>60 ml/min) > 60 BUN/Creatinine Ratio (7 - 25 %) 10.0 Calcium (8.4 - 10.2 mg/dL) 10.2 Cancelled Hematology CBC w Diff NO MAN DIFF REQ WBC (4.8 - 10.8 /CUMM) 9.8 RBC (4.70 - 6.10 /CUMM) 3.74 L Hgb (14.0 - 18.0 G/DL) 11.5 L Hct (42 - 52 %) 33.0 L MCV (80.0 - 94.0 FL) 88.3 MCH (27.0 - 31.0 PG) 30.6 RDW (11.5 - 14.5 %) 14.9 H Plt Count (130 - 400 /CUMM) 217 MPV (7.4 - 10.4 FL) 7.7 Gran % (42.2 - 75.2 %) 79.6 H Lymphocytes % (20.5 - 51.1 %) 12.0 L Monocytes % (1.7 - 9.3 %) 6.4 Eosinophils % (0 - 5 %) 1.6 Basophils % (0.0 - 2.0 %) 0.4 Absolute Granulocytes (1.4 - 6.5 /CUMM) 7.8 H Absolute Lymphocytes (1.2 - 3.4 /CUMM) 1.2 Absolute Monocytes (0.10 - 0.60 /CUMM) 0.6 Absolute Eosinophils (0.0 - 0.7 /CUMM) 0.2 Absolute Basophils (0.0 - 0.2 /CUMM) 0 PUBS MCHC (33.0 - 37.0 G/DL) 34.7 02/23 02/22 0810 1640 Chemistry Sodium (137 - 145 mmol/L) 135 L Potassium (3.5 - 5.1 mmol/L) 4.1 Chloride (98 - 107 mmol/L) 104 Carbon Dioxide (22 - 30 mmol/L) 23 Anion Gap (5 - 16) 8 BUN (9 - 20 mg/dL) 9 Creatinine (0.7 - 1.2 mg/dL) 0.9 Estimated GFR (>60 ml/min) > 60 BUN/Creatinine Ratio (7 - 25 %) 10.0 Calcium (8.4 - 10.2 mg/dL) 11.3 H 11.4 H Magnesium (1.6 - 2.3 mg/dL) 1.8 1.8 Hematology CBC w Diff NO MAN DIFF REQ WBC (4.8 - 10.8 /CUMM) 10.4 RBC (4.70 - 6.10 /CUMM) 3.79 L Hgb (14.0 - 18.0 G/DL) 11.6 L Hct (42 - 52 %) 33.8 L MCV (80.0 - 94.0 FL) 89.2 MCH (27.0 - 31.0 PG) 30.6 RDW (11.5 - 14.5 %) 15.2 H Plt Count (130 - 400 /CUMM) 229 MPV (7.4 - 10.4 FL) 8.1 Gran % (42.2 - 75.2 %) 77.5 H Lymphocytes % (20.5 - 51.1 %) 13.6 L Monocytes % (1.7 - 9.3 %) 7.7 Eosinophils % (0 - 5 %) 0.8 Basophils % (0.0 - 2.0 %) 0.4 Absolute Granulocytes (1.4 - 6.5 /CUMM) 8.0 H Absolute Lymphocytes (1.2 - 3.4 /CUMM) 1.4 Absolute Monocytes (0.10 - 0.60 /CUMM) 0.8 H Absolute Eosinophils (0.0 - 0.7 /CUMM) 0.1 Absolute Basophils (0.0 - 0.2 /CUMM) 0 PUBS MCHC (33.0 - 37.0 G/DL) 34.3 02/22 02/22 02/21 1640 0144 2330 Chemistry Sodium (137 - 145 mmol/L) 136 L Potassium (3.5 - 5.1 mmol/L) 3.1 L Chloride (98 - 107 mmol/L) 102 Carbon Dioxide (22 - 30 mmol/L) 25 Anion Gap (5 - 16) 9 BUN (9 - 20 mg/dL) 11 Creatinine (0.7 - 1.2 mg/dL) 0.9 Estimated GFR (>60 ml/min) > 60 BUN/Creatinine Ratio (7 - 25 %) 12.2 Lactic Acid (0.7 - 2.1 mmol/L) Cancelled 0.9 Albumin (3.5 - 5.0 g/dL) 2.8 L Hematology CBC w Diff NO MAN DIFF REQ WBC (4.8 - 10.8 /CUMM) 10.2 RBC (4.70 - 6.10 /CUMM) 3.85 L Hgb (14.0 - 18.0 G/DL) 11.5 L Hct (42 - 52 %) 34.3 L MCV (80.0 - 94.0 FL) 89.1 MCH (27.0 - 31.0 PG) 30.0 RDW (11.5 - 14.5 %) 15.2 H Plt Count (130 - 400 /CUMM) 221 MPV (7.4 - 10.4 FL) 7.8 Gran % (42.2 - 75.2 %) 81.8 H Lymphocytes % (20.5 - 51.1 %) 9.8 L Monocytes % (1.7 - 9.3 %) 7.1 Eosinophils % (0 - 5 %) 1.1 Basophils % (0.0 - 2.0 %) 0.2 Absolute Granulocytes (1.4 - 6.5 /CUMM) 8.3 H Absolute Lymphocytes (1.2 - 3.4 /CUMM) 1.0 L Absolute Monocytes (0.10 - 0.60 /CUMM) 0.7 H Absolute Eosinophils (0.0 - 0.7 /CUMM) 0.1 Absolute Basophils (0.0 - 0.2 /CUMM) 0 PUBS MCHC (33.0 - 37.0 G/DL) 33.7 02/21 1803 Urines Urinalysis LIGHT H Urine Color (YEL,AMB,STR) YEL Urine Clarity (CLEAR) CLDY H Urine pH (5.0 - 8.0) 7.0 Ur Specific [place] (1.001 - 1.035) 1.020 Urine Protein (NEG,<30 MG/DL) 30 H Urine Ketones (NEG) NEG Urine Nitrite (NEG) NEG Urine Bilirubin (NEG) NEG Urine Urobilinogen (0.1 - 1.0 EU/dl) 0.2 Ur Leukocyte Esterase (NEG) LARGE H Ur Microscopic SEDIMENT EXAMINED Urine RBC (0 - 5 /HPF) 10-15 H Urine WBC (0 - 2 /HPF) > 75 H Urine Bacteria (NEG/NONE) MANY H Urine Hemoglobin (NEG) LARGE H Urine Glucose (N MG/DL) NEG 12/27 1548 Chemistry Sodium (137 - 145 mmol/L) 133 L Potassium (3.5 - 5.1 mmol/L) 3.6 Chloride (98 - 107 mmol/L) 96 L Carbon Dioxide (22 - 30 mmol/L) 24 Anion Gap (5 - 16) 13 BUN (9 - 20 mg/dL) 14 Creatinine (0.7 - 1.2 mg/dL) 1.0 Estimated GFR (>60 ml/min) > 60 BUN/Creatinine Ratio (7 - 25 %) 14.0 Glucose (65 - 99 mg/dL) 112 H Calcium (8.4 - 10.2 mg/dL) 12.7 H Phosphorus (2.5 - 4.5 mg/dL) 3.0 Magnesium (1.6 - 2.3 mg/dL) 1.5 L Total Bilirubin (0.2 - 1.3 mg/dL) 1.5 H AST (17 - 59 U/L) 39 ALT (21 - 72 U/L) 35 Alkaline Phosphatase (< 127 U/L) 146 H Troponin I (<0.11 ng/ml) 0.02 Total Protein (6.3 - 8.2 g/dL) 6.5 Albumin (3.5 - 5.0 g/dL) 3.8 Globulin (1.9 - 4.2 gm/dL) 2.7 Albumin/Globulin Ratio (1.1 - 2.2 %) 1.4 Vitamin B12 (239 - 931 pg/mL) 903 Folate (2.76 - 20.0 ng/mL) 12.5 TSH &T3 &Free T4 Intrp (0.27 - 4.20 uIU/mL) 1.560 PTH Intact (13.8 - 85 pg/ml) < 6.3 L Coagulation PT (9.4 - 12.5 SEC) 18.1 H INR (0.90 - 1.17) 1.73 H APTT (25 - 37 SEC) 28 Hematology CBC w Diff NO MAN DIFF REQ WBC (4.8 - 10.8 /CUMM) 16.8 H RBC (4.70 - 6.10 /CUMM) 4.57 L Hgb (14.0 - 18.0 G/DL) 13.9 L Hct (42 - 52 %) 40.7 L MCV (80.0 - 94.0 FL) 89.1 MCH (27.0 - 31.0 PG) 30.5 RDW (11.5 - 14.5 %) 15.0 H Plt Count (130 - 400 /CUMM) 259 MPV (7.4 - 10.4 FL) 7.9 Gran % (42.2 - 75.2 %) 86.8 H Lymphocytes % (20.5 - 51.1 %) 7.3 L Monocytes % (1.7 - 9.3 %) 5.4 Eosinophils % (0 - 5 %) 0.3 Basophils % (0.0 - 2.0 %) 0.2 Absolute Granulocytes (1.4 - 6.5 /CUMM) 14.5 H Absolute Lymphocytes (1.2 - 3.4 /CUMM) 1.2 Absolute Monocytes (0.10 - 0.60 /CUMM) 0.9 H Absolute Eosinophils (0.0 - 0.7 /CUMM) 0.1 Absolute Basophils (0.0 - 0.2 /CUMM) 0 PUBS MCHC (33.0 - 37.0 G/DL) 34.2 Disposition Summary Disposition Principal Diagnosis: high calcium FTT UTI Additional Diagnosis: prostate cancer with mets Discharge Disposition: SNF Discharge Instructions General Discharge Information Code Status: Do Not Resucitate/Intubat Patient's Diet: regular Patient's Activity: as tolerated Follow-Up Instructions/Appts: -Please follow-up with your primary care provider within 7 days after discharge. -please follow-up with Dr. Rae after discharge regarding you cid cath. -please follow-up with your oncologist regarding starting Zytiga after discharge call [phone] -We have made changes to your home medications, please read the instructions carefully. -Please come back to the hospital if your symptoms got worse. Medications at Discharge Discharge Medications: Continue taking these medications: Bicalutamide (Bicalutamide) 50 MG TABLET 1 Tablet ORAL DAILY Comments: Apixaban (Eliquis) 5 MG TABLET 1 Tablet ORAL TWICE DAILY Comments: Megestrol Acetate (Megestrol Acetate) 40 MG TABLET 1 Tablet ORAL DAILY Qty = 30 Instructions: . Comments: Tamsulosin HCl (Flomax) 0.4 MG CAP.ER.24H 0.4 Milligram ORAL TWICE DAILY Qty = 60 Comments: Start taking the following new medications: Escitalopram Oxalate (Lexapro) 10 MG TABLET 10 Milligram ORAL DAILY Qty = 30 No Refills Prednisone (Prednisone) 5 MG TABLET 5 Milligram ORAL TWICE DAILY Qty = 60 No Refills Amoxicillin/Potassium Clav (Augmentin 875-125 Tablet) 875 MG-125 MG TABLET 1 Tablet ORAL TWICE DAILY Qty = 10 No Refills Copies To: Ramsey MERCHANT,Pb Roberts; Nirmal MERCHANT,Tom Bethea
[2017-02-23] MEDS ORDERED: PREDNISONE5 M1 PO (13:58)
[2017-02-23] MEDS ORDERED: LEXAPRO10 M1 PO (13:58)
[2017-02-23 14:29] VITALS: BP 118/66
[2017-02-23 22:31] VITALS: BP 122/88
[2017-02-24 06:35] VITALS: BP 116/74
[2017-02-24 09:06] LABS: ABSOLUTE BASOPHIL COUNT 0 /CUMM (0.0-0.2); ABSOLUTE EOSINOPHIL COUNT 0.2 /CUMM (0.0-0.7); ABSOLUTE GRANULOCYTE CT 7.8 /CUMM (1.4-6.5); ABSOLUTE LYMPH COUNT 1.2 /CUMM (1.2-3.4); ABSOLUTE MONOCYTE COUNT 0.6 /CUMM (0.10-0.60); BASOPHIL % 0.4 % (0.0-2.0); EOSINOPHIL % 1.6 % (0-5); GRANULOCYTE % 79.6 % (42.2-75.2); MEAN CORPUSCULAR HGB 30.6 PG (27.0-31.0); MEAN CORPUSCULAR HGB CONC 34.7 G/DL (33.0-37.0); MEAN CORPUSCULAR VOLUME 88.3 FL (80.0-94.0); MEAN PLATELET VOLUME 7.7 FL (7.4-10.4); PLATELET COUNT 217 /CUMM (130-400); RBC DISTRIBUTION WIDTH 14.9 % (11.5-14.5); RED BLOOD CELL CT 3.74 /CUMM (4.70-6.10); WHITE BLOOD CELL COUNT 9.8 /CUMM (4.8-10.8)
--- NOTE | 2017-02-24 10:17 | PN- Att Addend ---
Attending Addendum Attending Brief Note Patient seen and examined. He has a bed at [facility] as informed by case management. Although he is not thrilled about going to [facility] he understands the need to do so. On exam his blood pressure is 116/74, afebrile, pulse is 91, breathing at 16- 18. Lungs have decreased breath sounds at the bases, heart is S1-S2 regular, abdomen is soft nontender and he has a Cabral catheter. He is an 86-year-old male with a past medical history of metastatic prostate CA and obstructive uropathy with a Cabral. His hypercalcemia was treated with IV fluids and IV pamidronate and he is going to leave on steroids and a new agent for the prostate ca as per hematology oncology. He is also being treated for a UTI with IV ceftriaxone, his white count is coming down from 16-9 and he will leave with a Cabral with outpatient follow-up with Dr. Rae and by mouth antibiotics.
[2017-02-24] MEDS ORDERED: AUGMENTIN 875-1 EACH PO (10:30)
[2017-02-24 15:08] VITALS: BP 100/74
== END 2017-02-24 15:00 ==
LOC: ERH 15:19 → ERHI 19:33 → 2NB 19:33 → ENRESERV 20:34 → ENTRNSPT 21:45 → EDTRNSPTSTS 21:49 → EDTRNSPT 21:49 → 2NB 21:56 → CMPTRNSPT 22:05 → 2NB 02-23 08:32 → ENPENDDIS 02-24 11:50 → 2NB 02-24 15:00
PROVIDERS: Emergency Medicine; Internal Medicine
DX: R26.9 Unspecified abnormalities of gait and mobility (principal); R53.1 Weakness; N39.0 Urinary tract infection, site not specified; C61 Malignant neoplasm of prostate; C78.5 Secondary malignant neoplasm of large intestine and rectum; C79.51 Secondary malignant neoplasm of bone; I10 Essential (primary) hypertension; Z86.711 Personal history of pulmonary embolism; Z79.01 Long term (current) use of anticoagulants; Z87.891 Personal history of nicotine dependence; E83.52 Hypercalcemia; R33.9 Retention of urine, unspecified; N32.0 Bladder-neck obstruction; R64 Cachexia; R91.8 Other nonspecific abnormal finding of lung field; N28.9 Disorder of kidney and ureter, unspecified; R62.7 Adult failure to thrive
CPT/HCPCS: 36415; 81001; 82436; 87040; 87086; 93005; 93010; 96374; 96375; 96376; 97110-GP; 97116-GP; 97161-GP; 97530-GP; G0378; G8978-GP; G8979-GP; J0696; J2430; J7512; J9202